=== PATIENT | female | born 1955 | race Caucasian/White ===

== ENCOUNTER 2018-11-16 07:30 | Inpatient (IN) | payer OTHER ==
--- NOTE | 2018-11-09 10:58 | HP ---
H&P (Free Text) History and Physical: [facility] AMY GARCIA M.D. [address] [place] [phone] Date of Visit: November 05, 2018 Patient Name: Christin Rose : 1955 Gender: female Age: 63 years Primary Care Physician: Marcus Boo MD CC: History and physical prior to undergoing a right total knee arthroplasty, 11/16/2018. HPI: The patient is a very pleasant 63-year-old female with bilateral knee pain due to end-stage osteoarthritis with approximately 8/10 knee pain in her right knee, which has been keeping her from doing her normal activities. She has had improvement with injections in the past, however, feels that these are not working as well and has elected to undergo a right total knee arthroplasty by Dr. Amy Garcia on 11/16/2018. PAST MEDICAL HISTORY: 1. Osteoarthritis. 2. History of alcohol abuse. 3. History of anxiety. 4. History of depression. 5. History of breast cancer, status post lumpectomy and radiation in 2004; currently in remission. 6. Ischemic colitis in early . 7. History of psychiatric admission. PAST SURGICAL HISTORY: 1. Breast lumpectomy with radiation in 2004. 2. Varicose vein surgery. CURRENT MEDICATIONS: 1. Venlafaxine HCL 450 mg. 2. Lamotrigine 150 mg 1 tablet p.o. daily. 3. Mometasone 50 mcg spray each nostril daily. 4. Vitamin D 400 international units 1 tablet by mouth daily. 5. Marielena 180 mg 1 tablet by mouth daily. ALLERGIES: No known drug allergies. FAMILY HISTORY: Mother with diabetes, hypertension, and cancer. SOCIAL HISTORY: The patient is retired, lives alone. No tobacco or alcohol use. Normally very active. Right-hand dominant. ROS: The patient denies any lightheadedness, dizziness, seizures, headaches, difficulty with swallowing, nausea, vomiting, constipation, diarrhea, chest pain , heart palpitations, shortness of breath, cough, COPD, urinary symptoms such as urgency or frequency, urinary tract infections, blood in her stool or blood in her urine. Denies any other muscle joint aches or pains. The patient was listed to have a history of hepatitis but she denies this. Has had anesthesia in the past without any difficulty. Review of systems is positive for bilateral knee pain. Meds Prior to Visit: Venlafaxine HCL ER 450 mg Lamotrigine 150 mg take one tablet by mouth daily Mometasone Furoate 50 mcg/Act spray two sprays in each nostril every day Vitamin D (Cholecalciferol) 400 Unit 1 by mouth every day Marielena Allergy 180 mg 1 by mouth every day Ibuprofen Allergies: No Known Drug Allergy Problem List: Complex tear of medial mensc, current injury, l knee, subs Localized, primary osteoarthritis Date: 11/05/2018 Was the patient queried about smoking behavior? Yes No Does the patient currently smoke? Smoking: Patient has never smoked. Vitals: Ht: 62.5" Wt: 181lb Pulse: 84 BP: 130/80 BMI: 32.6 EXAM: GENERAL: Well appearing, in no acute distress. Alert and oriented. Appears younger than stated age. Appropriate mood and affect. Appropriate hygiene. HEENT: Normocephalic, atraumatic. Trachea midline. CARDIAC: Regular rate and rhythm. No murmurs, gallops or rubs. LUNGS: Clear to auscultation bilaterally. No crackles, rhonchi or wheezes. ABDOMEN: Soft, nontender, nondistended. No CVA tenderness bilaterally. MUSCULOSKELETAL: Positive dorsiflexion and plantar flexion equal bilaterally. Negative Homans sign bilaterally. Right knee with medial joint line tenderness and tenderness over the medial femoral condyle. No instability with valgus or varus stresses. Neurovascularly intact to light touch distal to both knees bilaterally. Mild joint effusion noted on the right knee. Range of motion 0- 130 degrees without difficulty. ASSESSMENT: End-stage osteoarthritis, right knee. PLAN: 1. The patient was seen by Dr. Boo who had cleared the patient pending an echocardiogram, which was done on 11/04/2018, which does show some diastolic dysfunction. We will talk with Dr. Boo's office with regard to clearance. She had blood work done, which was within normal limits. She will be seen by a PAT this afternoon for anesthesia clearance. 2. The patient is living alone but she does have a friend who will be staying with her postoperatively. 3. We discussed postoperative DVT prophylaxis, which includes either Eliquis or Coumadin. The patient was in agreement with this. She had no other questions or concerns.
[~2018-11-16 07:30] MED LIST: Buffered Lidocaine 1% SYRIN* 1 ML/SYRINGE INTRADERM ONE; Bupivacaine 0.5% PF 10 ML VIAL INJ ONE; Lactated Ringers 1000 ML Bag* 1,000 ML IV SCH; Tranexamic Acid 1,000 MG in NS 0.9% 50 ML* (outpatient use) IV SCH
--- OUTSIDE RECORDS SUMMARY | 2018-11-16 12:23 | XMS REPORT | Continuity of Care Document ---
:1955 External Reference #:[id number] Author Name Sabiha Barroso Care Team Providers Name Role Phone Marcus Boo MD Primary Care Physician Unavailable Payers Type Date Identification Numbers Payment Provider Subscriber Effective: Policy Number: [id number] [facility] Health Ins Barrington Rose 2009 Ppo/Epo Expires: 2017 Group Number: [id number] [address] PayID: [id number] [place] [address] Effective: 2017 Policy Number: [employer] Medicaid Christin Rose [id number] PayID: [id number] [address] [address] [place] [address] Advance Directives Description No Information Available Problems Date Description Provider Status Onset: 03/20/2017 Localized, primary osteoarthritis Lizbet Cyr MD Active Onset: 03/20/2017 Complex tear of medial meniscus, current Lizbet Cyr MD Active injury, left knee, subsequent encounter Family History Date Family Member(s) Problem(s) Comments General Diabetes General Hypertension General Cancer Social History Type Date Description Comments Sex Unknown Lives With Alone Occupation Retired ETOH Use Denies alcohol use Tobacco Use Start: Unknown Patient has never smoked Smoking Status Reviewed: 11/05/18 Patient has never smoked Exercise Type/Frequency Exercises sporadically Allergies, Adverse Reactions, Alerts Description No Known Drug Allergies Medications Medication Date Status Form Strength Qnty SIG Indications Ordering Provider Venlafaxine HCL ER Active Caps ER 450mg Julio, /0000 24HR Naya Baig MD Lamotrigine Active Tablets 150mg Take One Unknown /0000 Tablet By Mouth Daily Mometasone Furoate Active Suspension 50mcg/Act [place] Unknown /0000 Two Sprays In Each Nostril Every Day Vitamin D Active Capsules 400Unit 1 by Unknown (Cholecalciferol) /0000 mouth every day Marielena Allergy Active Tablets 180mg 1 by Unknown /0000 mouth every day Ibuprofen Active Unknown /0000 Methylprednisolone 00 Hx TBPK 4mg Griffin, / Allan, - [employer] [facility] 02/21 Fish Oil Hx Capsules 435mg 2 by Unknown / mouth - every Medications Administered in Office Medication Date Status Form Strength Qnty SIG Indications Ordering Provider Depomedrol Administered Injection Amy 40MG Kaleb Garcia M.D. Depomedrol Administered Injection Amy 40MG Kaleb Garcia M.D. Depomedrol Administered Injection Amy 40MG Kaleb Garcia M.D. Depomedrol Administered Injection Amy 40MG Kaleb Garcia M.D. Depomedrol Administered Injection Amy 40MG Kaleb Garcia M.D. Depomedrol Administered Injection Amy 40MG Kaleb Garcia M.D. Immunizations Description No Information Available Vital Signs Date Vital Result Comment 11/05/2018 9:44am Height 62.5 inches 5'2.50" Weight 181.00 lb Heart Rate 84 /min BP Systolic 130 mmHg BP Diastolic 80 mmHg BMI (Body Mass Index) 32.6 kg/m2 08/16/2018 2:37pm Height 62.5 inches 5'2.50" Weight 180.00 lb BP Systolic 118 mmHg BP Diastolic 80 mmHg Body Temperature 97.7 F BMI (Body Mass Index) 32.4 kg/m2 05/24/2018 3:04pm Height 63.5 inches 5'3.50" Weight 183.00 lb BP Systolic 111 mmHg BP Diastolic 72 mmHg Respiratory Rate 15 /min Pain Level 6 BMI (Body Mass Index) 31.9 kg/m2 03/22/2018 3:12pm Height 63.5 inches 5'3.50" Weight 185.00 lb BP Systolic Sitting 148 mmHg BP Diastolic Sitting 98 mmHg Respiratory Rate 16 /min Body Temperature 98.4 F Pain Level 1 BMI (Body Mass Index) 32.3 kg/m2 02/22/2018 3:20pm Height 63.5 inches 5'3.50" Weight 185.00 lb Heart Rate 96 /min BP Systolic 126 mmHg BP Diastolic 86 mmHg BMI (Body Mass Index) 32.3 kg/m2 03/20/2017 10:43am Height 64 inches 5'4" Weight 184.00 lb BP Systolic 131 mmHg BP Diastolic 82 mmHg Respiratory Rate 15 /min Pain Level 5 BMI (Body Mass Index) 31.6 kg/m2 Results Description No Information Available Procedures Date Code Description Status 11/04/2018 05685 ECHO Transthoracic, Real-Time 2D With Doppler And Color Completed Flow 08/16/2018 Inject/Drain Joint/Bursa Major W/O US Completed 05/24/2018 Inject/Drain Joint/Bursa Major W/O US Completed 02/22/2018 Inject/Drain Joint/Bursa Major W/O US Completed Encounters Type Date Location Provider Dx Diagnosis Office Visit 08/16/2018 Orthopedic Amy Garcia, M25.561 Pain in right 2:30p Services Of Brianne Garcia knee M25.461 Effusion, right knee M25.562 Pain in left knee M25.462 Effusion, left knee M17.0 Bilateral primary osteoarthritis of knee Office Visit 03/22/2018 2:45p Orthopedic Services Amy Garcia M25.561 Pain in right Of C.M.A. Michael.D. knee M25.562 Pain in left knee M25.461 Effusion, right knee M25.462 Effusion, left knee M17.0 Bilateral primary osteoarthritis of knee Office Visit 02/22/2018 3:00p Orthopedic Amy M17.0 Bilateral primary Services Of Jose Garcia osteoarthritis of C.M.A. knee M25.561 Pain in right knee M25.562 Pain in left knee M25.461 Effusion, right knee M25.462 Effusion, left knee Office Visit 03/20/2017 Orthopedic Lizbet Cyr, M17.12 Unilateral primary 10:30a Services Of osteoarthritis, left C.M.A. knee S83.242A Oth tear of medial meniscus, current injury, left knee, init S83.232D Complex tear of medial mensc, current injury, l knee, subs Office Visit 04/10/2010 2:45p Neurosurgery Elio Saunders 846.0 Sprains & Strains Services Of Joe Tejeda M.D. Sacroiliac Region Lumbosacral (Joint)(Liga Plan of Treatment Future Appointment(s):12/01/2018 11:30 am - Amy Garcia M.D. at [facility].11/16/2018 3:30 pm - Jaya Clifton PA-C at [facility]A.11/16/2018 3:30 pm - JESUS ALBERTO Agosto at [facility] ..A.11/16/2018 3:30 pm - Amy Garcia M.D. at [facility].11/05/2018 - Amy Garcia M.D.M17.12 Unilateral primary osteoarthritis, left kneeFollow up:Follow up: 2 weeks post-op
[2018-11-16] MEDS ORDERED: ceFAZolin 2 GM PREMIX in ORs 2 GM/50 ML BAG IVPB ONE (12:41)
[2018-11-16] MEDS ORDERED: Lidocaine 2% PF * 5 ML VIAL ONE ×2 (12:43→15:28)
[2018-11-16] MEDS ORDERED: Propofol* 10 MG/ML 20 ML BTL ONE ×2 (12:43→12:44)
[2018-11-16] MEDS ORDERED: KETAMINE HCL* 50 MG/ML 10 ML VIAL ONE (12:44)
[2018-11-16] MEDS ORDERED: EPINEPHrine SYR 0.1MG/ML* SYRINGE ONE (13:26)
[2018-11-16] MEDS ORDERED: ROPIVACAINE 5 MG/ML 30 ML BTL (0.5%) ONE ×3 (14:31→14:44)
[2018-11-16] MEDS ORDERED: Midazolam* 1 MG/ML 2 ML VIAL (2 MG) ONE (14:45)
[2018-11-16] MEDS ORDERED: Dexamethasone IV* 4 MG/ML 1 ML (4 MG) ONE (14:51)
[2018-11-16] MEDS ORDERED: Ondansetron INJ* 2 MG/ML VIAL IV PRN ×2 (17:25→17:52)
[2018-11-16] MEDS ORDERED: Acetaminophen IV 1GM/100ML * 1,000 MG/100 ML VIAL IVPB ONE (17:25)
[2018-11-16] MEDS ORDERED: Naloxone* 0.4 MG/ML 1 ML VIAL IV PRN (17:25)
[2018-11-16] MEDS ORDERED: oxyCODONE TAB* 5 MG TAB PO PRN (17:25)
[2018-11-16] MEDS ORDERED: HYDROmorphone INJ1* 1 MG/ML SYRINGE IV PRN (17:25)
[2018-11-16] MEDS ORDERED: Ketorolac INJ* 30 MG/ML 1 ML VIAL IV PRN (17:25)
[2018-11-16] MEDS ORDERED: oxyCODONE/Acetamin 5/325 MG* TAB PO PRN (17:52)
[2018-11-16] MEDS ORDERED: diPHENhydraMINE IV* 50 MG/ML 1 ml VIAL (BENADRYL) IV PRN (17:52)
[2018-11-16] MEDS ORDERED: Ondansetron TAB* 4 MG PO PRN (17:52)
[2018-11-16] MEDS ORDERED: Bisacodyl SUPP* 10 MG SUPP PR PRN (17:52)
[2018-11-16] MEDS ORDERED: Magnesium Hydroxide LIQ* 30 ML UDC PO PRN (17:52)
[2018-11-16] MEDS ORDERED: Polyethylene Glycol 3350* 17 GM PACKET PO PRN (17:52)
[2018-11-16] MEDS ORDERED: Acetaminophen IV 1GM/100ML * 100 ML ONE (20:55)
[2018-11-16] MEDS ORDERED: Ketorolac INJ* 30 MG/ML 1 ML VIAL ONE (20:55)
[2018-11-16] MEDS ORDERED: Warfarin TAB(*) 6 MG PO ONE (22:00)
[2018-11-16] MEDS: Magnesium Hydroxide LIQ* 30 ML UDC PO SCH (22:51)
[2018-11-16] MEDS: traMADol TAB* 50 MG PO PRN (22:52)
[2018-11-16] MEDS: Docusate CAP* 100 MG PO SCH (22:52)
[2018-11-16] MEDS: lamoTRIgine TAB(*) 100 MG PO SCH (22:52)
[2018-11-16] MEDS: Venlafaxine EXT RELEASE CAP* 75 MG PO SCH (22:53)
[2018-11-16] MEDS: Lactated Ringers 1000 ML Bag* 1,000 ML IV SCH (23:20)
[2018-11-16] MEDS: ceFAZolin 1 GM ADVAN(*) 1 GM in NS 0.9% 50 ML* 50 ML IVPB SCH (23:20)
[2018-11-16] MEDS: Morphine INJ* 2 MG/ML 1 ML SYRINGE (TWO MG - NEW SYRINGE VERSION) IV PRN (23:29)
[2018-11-17] MEDS: Cyclobenzaprine TAB* 10 MG PO PRN ×3 (00:17→19:26)
[2018-11-17] MEDS: oxyCODONE TAB* 5 MG TAB PO PRN ×6 (00:17→23:37)
[2018-11-17] MEDS: Morphine INJ* 2 MG/ML 1 ML SYRINGE (TWO MG - NEW SYRINGE VERSION) IV PRN ×3 (01:31→06:33)
[2018-11-17] MEDS: oxyCODONE/Acetamin 5/325 MG* TAB PO PRN ×5 (03:23→21:36)
[2018-11-17] MEDS: traMADol TAB* 50 MG PO PRN ×3 (05:06→21:36)
[2018-11-17] MEDS: Acetaminophen TAB* 325 MG PO SCH ×3 (06:31→21:40)
[2018-11-17 06:45] LABS: Hematocrit 33 % (35-47); Hemoglobin 11.3 g/dl (12.0-16.0); Mean Platelet Volume 9.4 fL (7.4-10.4); Platelet Count 206 10^3/ul (150-450)
[2018-11-17 06:49] LABS: INR 0.98 (0.77-1.02)
[2018-11-17 06:54] LABS: Calcium 8.8 mg/dL (8.6-10.3); Potassium 3.9 mmol/L (3.5-5.0)
[2018-11-17 06:59] LABS: BUN/Creatinine Ratio 23.7 (8-20); EGFR African American 93.3 (>60); EGFR Non-African American 77.1 (>60)
[2018-11-17] MEDS: ceFAZolin 1 GM ADVAN(*) 1 GM in NS 0.9% 50 ML* 50 ML IVPB SCH ×2 (08:28→16:36)
[2018-11-17] MEDS: Venlafaxine EXT RELEASE CAP* 75 MG PO SCH ×2 (08:33→21:36)
[2018-11-17] MEDS: Magnesium Hydroxide LIQ* 30 ML UDC PO SCH ×2 (08:33→21:37)
[2018-11-17] MEDS: Docusate CAP* 100 MG PO SCH ×2 (08:33→21:37)
[2018-11-17] MEDS: lamoTRIgine TAB(*) 100 MG PO SCH ×2 (08:33→21:36)
--- NOTE | 2018-11-17 08:57 | PN ---
Subjective - Subjective Reason for Note: Progress Note History: Internal medicine/primary care note: 1 day post right TKA. She is doing well and has no medical complications. Her pain control is good and she has no focal symptoms Active Problems: Active Problems Status post total knee replacement, right (Acute) Z96.651 Current Medications: Current Medications Acetaminophen (Tylenol Tab*) 975 mg PO Q8HR [facility] Last Admin: 11/17/18 06:31 Dose: Not Given Bisacodyl (Dulcolax Supp*) 10 mg [place] DAILY PRN PRN Reason: constipation Cyclobenzaprine HCl (Flexeril Tab*) 10 mg PO TID PRN PRN Reason: SPASMS Last Admin: 11/17/18 00:17 Dose: 10 mg Diphenhydramine HCl (Benadryl Iv*) 12.5 mg IV Q6H PRN PRN Reason: PRURITIS Docusate Sodium (Colace Cap*) 100 mg PO BID [facility] Last Admin: 11/17/18 08:33 Dose: 100 mg Enoxaparin Sodium (Lovenox(*)) 40 mg SUBCUT Q24H [facility] Lactated Ringer's (Lactated Ringers 1000 Ml Bag*) 1,000 mls @ 125 mls/hr IV PER RATE [facility] Last Admin: 11/16/18 12:58 Dose: 125 mls/hr Cefazolin Sodium 1 gm/ Sodium (Chloride) 50 mls @ 200 mls/hr IVPB Q8H [facility] Stop: 11/17/18 16:14 Last Admin: 11/17/18 08:28 Dose: 200 mls/hr Lactated Ringer's (Lactated Ringers 1000 Ml Bag*) 1,000 mls @ 100 mls/hr IV PER RATE [facility] Last Admin: 11/16/18 23:20 Dose: 100 mls/hr Lactulose (Lactulose*) 30 ml PO Q6H PRN PRN Reason: constipation Lamotrigine (Lamictal Tab(*)) 100 mg PO BID [facility] Last Admin: 11/17/18 08:33 Dose: 100 mg Magnesium Hydroxide (Milk Of Magnesia Liq*) 30 ml PO BID [facility] Last Admin: 11/17/18 08:33 Dose: 30 ml Magnesium Hydroxide (Milk Of Magnesia Liq*) 30 ml PO Q6H PRN PRN Reason: constipation Morphine Sulfate (Morphine Inj ((Syringe))*) 2 mg IV Q2H PRN PRN Reason: PAIN Last Admin: 11/17/18 06:33 Dose: 2 mg Ondansetron HCl (Zofran Inj*) 4 mg IV Q6H PRN PRN Reason: nausea Ondansetron HCl (Zofran Tab*) 4 mg PO Q6H PRN PRN Reason: NAUSEA Oxycodone HCl (Roxycodone Tab*) 10 mg PO Q4H PRN PRN Reason: SEVERE PAIN Last Admin: 11/17/18 06:32 Dose: 10 mg Oxycodone/Acetaminophen (Percocet 5/325 Tab*) 1 tab PO Q4H PRN PRN Reason: PAIN Oxycodone/Acetaminophen (Percocet 5/325 Tab*) 2 tab PO Q4H PRN PRN Reason: PAIN Last Admin: 11/17/18 08:32 Dose: 2 tab Polyethylene Glycol/Electrolytes (Miralax*) 17 gm PO DAILY PRN PRN Reason: Constipation Tramadol HCl (Ultram*) 50 mg PO Q6H PRN PRN Reason: PAIN Last Admin: 11/17/18 05:06 Dose: 50 mg Venlafaxine HCl (Effexor Xr Cap*) 300 mg PO BEDTIME HARIS; Protocol Last Admin: 11/16/18 22:53 Dose: 300 mg Venlafaxine HCl (Effexor Xr Cap*) 150 mg PO QAM [facility] Last Admin: 11/17/18 08:33 Dose: 150 mg - Review of Systems Constitutional Symptoms: No: Fever Pulmonary: Negative: Cough, Sputum, Shortness of Breath Cardiology: Negative: Chest Pain, Palpitations, Swelling of Ankles Gastroenterology: Positive: Anorexia Negative: Abdominal Pain, Nausea, Vomiting Genital - Urinary: Positive: Other - Wilkerson recently removed Home Medications: Home Medications Medication Instructions Recorded Confirmed Type Cholecalciferol TAB* [Vitamin D 2,000 unit PO QAM 03/24/17 11/16/18 History TAB*] Fexofenadine (NF) [Marielena 180 180 mg PO QAM 03/24/17 11/16/18 History (NF)] Venlafaxine EXT RELEASE CAP* 150 mg PO QAM 03/24/17 11/16/18 History [Effexor Xr CAP*] lamoTRIgine TAB(*) [LaMICtal 100 mg PO BID 03/24/17 11/16/18 History TAB(*)] Ibuprofen TAB* [Advil TAB*] 200 - 600 mg PO TID PRN 11/05/18 11/16/18 History Triamcinolone NASAL SPRAY* 1 spray .SEE ORDER DAILY PRN 11/05/18 11/16/18 History [Nasacort AQ Nasal [place]*] Venlafaxine CAP (NF) [Effexor CAP 300 mg PO BEDTIME 11/05/18 11/16/18 History (NF)] Allergies: Allergies Allergy/AdvReac Type Severity Reaction Status Date / Time No Known Allergies Allergy Verified 11/16/18 12:53 Objective - Vital Signs Vital Signs: Vital Signs 11/16/18 11/16/18 11/16/18 12:52 17:47 17:50 Temperature 96.3 F 97.5 F Pulse Rate 91 Respiratory 16 16 16 Rate Blood Pressure 155/71 (mmHg) O2 Sat by Pulse 94 Oximetry 11/16/18 11/16/18 11/16/18 17:52 17:53 17:55 Temperature Pulse Rate 76 77 74 Respiratory 16 Rate Blood Pressure 100/67 112/74 (mmHg) O2 Sat by Pulse 97 98 98 Oximetry 11/16/18 11/16/18 11/16/18 18:00 18:01 18:05 Temperature Pulse Rate 74 73 71 Respiratory 16 Rate Blood Pressure 110/75 118/63 (mmHg) O2 Sat by Pulse 99 99 99 Oximetry 11/16/18 11/16/18 11/16/18 18:15 18:30 18:45 Temperature Pulse Rate 68 68 66 Respiratory 16 14 16 Rate Blood Pressure 121/75 122/72 130/70 (mmHg) O2 Sat by Pulse 94 94 95 Oximetry 11/16/18 11/16/18 11/16/18 19:00 19:15 19:16 Temperature Pulse Rate 66 70 Respiratory 16 18 Rate Blood Pressure 127/66 136/91 (mmHg) O2 Sat by Pulse 94 96 Oximetry 11/16/18 11/16/18 11/16/18 19:30 19:31 19:45 Temperature Pulse Rate 73 74 Respiratory 16 16 Rate Blood Pressure 142/77 122/76 (mmHg) O2 Sat by Pulse 97 96 Oximetry 11/16/18 11/16/18 11/16/18 20:00 20:15 20:30 Temperature Pulse Rate 75 77 79 Respiratory 18 16 16 Rate Blood Pressure 125/74 132/60 114/82 (mmHg) O2 Sat by Pulse 96 95 95 Oximetry 11/16/18 11/16/18 11/16/18 20:45 21:00 21:04 Temperature Pulse Rate 78 79 Respiratory 18 16 Rate Blood Pressure 127/65 130/70 (mmHg) O2 Sat by Pulse 94 96 Oximetry 11/16/18 11/16/18 11/16/18 21:15 21:32 21:38 Temperature 98.6 F 98.6 F Pulse Rate 77 77 Respiratory 16 16 16 Rate Blood Pressure 112/58 112/58 (mmHg) O2 Sat by Pulse 95 95 Oximetry 11/16/18 11/16/18 11/16/18 22:24 22:27 22:52 Temperature 98.4 F Pulse Rate 82 81 Respiratory 18 16 Rate Blood Pressure 118/51 (mmHg) O2 Sat by Pulse 97 96 Oximetry 11/16/18 11/16/18 11/17/18 23:29 23:35 00:00 Temperature 97.5 F Pulse Rate 80 Respiratory 16 16 Rate Blood Pressure 135/62 (mmHg) O2 Sat by Pulse 95 96 Oximetry 11/17/18 11/17/18 11/17/18 00:17 00:30 01:13 Temperature 98.5 F Pulse Rate 80 Respiratory 20 16 18 Rate Blood Pressure 137/63 (mmHg) O2 Sat by Pulse 96 Oximetry 11/17/18 11/17/18 11/17/18 01:31 02:30 02:31 Temperature Pulse Rate Respiratory 18 16 16 Rate Blood Pressure (mmHg) O2 Sat by Pulse Oximetry 11/17/18 11/17/18 11/17/18 03:23 03:26 03:34 Temperature 98.3 F 98.6 F Pulse Rate 80 80 Respiratory 16 18 Rate Blood Pressure 115/52 110/58 (mmHg) O2 Sat by Pulse 95 97 Oximetry 11/17/18 11/17/18 11/17/18 04:28 04:29 05:06 Temperature Pulse Rate Respiratory 16 16 Rate Blood Pressure (mmHg) O2 Sat by Pulse 95 Oximetry 11/17/18 11/17/18 11/17/18 06:32 06:33 06:37 Temperature Pulse Rate Respiratory 16 16 16 Rate Blood Pressure (mmHg) O2 Sat by Pulse Oximetry 11/17/18 11/17/18 11/17/18 06:38 07:15 08:32 Temperature 98.3 F Pulse Rate 75 Respiratory 16 16 18 Rate Blood Pressure 103/51 (mmHg) O2 Sat by Pulse 94 Oximetry - Intake and Output Intake and Output: Intake & Output 11/14/18 11/15/18 11/16/18 11/17/18 11:59 11:59 11:59 11:59 Intake Total 1755 Output Total 700 Balance 1055 Weight 183 lb Intake: IV Fluids 1055 ABX - CEFAZOLIN 55 LR 1000 Oral 700 Output: Urine 350 Wilkerson 350 Other: Estimated Blood Loss MINIMAL Comment ADLs: Meal Record Start: 11/16/18 21: 32 Freq: Status: Active Protocol: Created 11/16/18 21:32 [id number] (Rec: 11/16/18 21:32 [id number]) Intake and Output Start: 11/16/18 17: 52 Freq: 06,14,2200 Status: Active Protocol: Created 11/16/18 17:57 [id number] (Rec: 11/16/18 17:57 [id number]) Document 11/16/18 23:38 [id number] (Rec: 11/16/18 23:38 [id number]) Document 11/17/18 05:00 [id number] (Rec: 11/17/18 07:14 [id number] [id number]) Document 11/17/18 05:32 [id number] (Rec: 11/17/18 05:35 [id number] [id number]) Intake and Output Start: 11/16/18 21: 32 Freq: DAILY@0600,1400,2200 Status: Active Protocol: Created 11/16/18 21:32 [id number] (Rec: 11/16/18 21:32 [id number] [id number]) Document 11/16/18 23:38 [id number] (Rec: 11/16/18 23:38 [id number] [id number]) Document 11/17/18 05:32 [id number] (Rec: 11/17/18 05:35 [id number] [id number]) Document 11/17/18 06:45 [id number] (Rec: 11/17/18 07:14 [id number] [id number]) - Physical Exam General Physical Exam Comment: Alert, oriented, conversational - in no acute distress. Hemodynamically stable General: No Cyanosis, No Anemia, No Jaundice, No Clubbing Lungs and Chest: Yes: Chest Expansion Full, Chest Expansion Symetrica, Percussion Note Resonant, Vessicular Breath Sounds. No: Crackles, Wheezes Heart Rate and Rhythm: Regular JVP: Not Elevated Additional Cardiovascular: Yes: Normal Heart Sounds. No: Heart Murmur, Pedal Edema Abdominal Exam: Yes: Soft, Bowel Sounds Present. No: Distention, Abdominal Mass , Abdominal Tenderness Results - Results Lab Results: Laboratory Results - last 24 hr 11/17/18 11/17/18 11/17/18 06:09 06:09 06:09 Hgb 11.3 L Hct 33 L Plt Count 206 MPV 9.4 INR (Anticoag Therapy) 0.98 Sodium 136 Potassium 3.9 Chloride 105 Carbon Dioxide 24 Anion Gap 7 BUN 18 Creatinine 0.76 Est GFR ( Amer) 93.3 Est GFR (Non-Af Amer) 77.1 BUN/Creatinine Ratio 23.7 H Glucose 125 H Calcium 8.8 Assessment - Problem List Assessment: Patient Problems Status post total knee replacement, right (Acute) Alcohol use (Acute 05/01/15) Anxiety (Acute 05/01/15) Depression (Acute 05/01/15) Substance induced mood disorder (Acute 05/01/15) Plan: Status post total knee replacement, right (Acute) She tolerated the surgery well Alcohol use (Acute 05/01/15) Not an active issue Anxiety (Acute 05/01/15) She is calm Depression (Acute 05/01/15) not a problem today Substance induced mood disorder (Acute 05/01/15) Her main concern is that she lives alone. She is going to be mobilized today. If there is a problem with this, she is a good candidate for PMRU
[2018-11-17] MEDS: Lactated Ringers 1000 ML Bag* 1,000 ML IV SCH ×2 (09:45→20:27)
--- NOTE | 2018-11-17 09:51 | PN ---
Progress Note - Progress Note Date of Service: 11/17/18 SOAP: Subjective: [] Pt seen and examined at bedside. She feels well without CP, SOB, dizziness, nausea. Well controlled knee pain. Concerned about help at home, desires rehab as she lives alone. She does have friends who will help though no 04/05 care. Objective: [] General: NAD RLE: Right knee dressing CDI without surrounding erythema, cryo cuff in use, thigh is soft, DF/PF intact, sensation intact to light touch distally, DP2+ capillary refill less than two seconds distally Calves supple and nontender without erythema, edema or palpable cords Assessment: []POD [address] Garcia 11/16 Plan: []WBAT PT/OT Lovenox bridge to coumadin. Coumadin 8 mg today Desires rehab at [place], CM made aware Vital Signs Temp 98.3 F 11/17/18 07:15 Pulse 75 11/17/18 07:15 Resp 18 11/17/18 09:16 BP 103/51 11/17/18 07:15 Pulse Ox 94 11/17/18 07:15 Intake & Output 11/16/18 11/17/18 11/17/18 18:59 06:59 18:59 Intake Total 1000 755 120 Output Total 100 600 Balance 900 155 120 Weight 183 lb Intake: IV Fluids 1000 55 ABX - CEFAZOLIN 55 LR 1000 Oral 700 120 Output: Urine 350 Wilkerson 100 250 Other: Estimated Blood Loss MINIMAL Comment Laboratory Last Values Hgb 11.3 g/dl (12.0-16.0) L 11/17/18 06:09 Hct 33 % (35-47) L 11/17/18 06:09 Plt Count 206 10^3/ul (150-450) 11/17/18 06:09 MPV 9.4 fL (7.4-10.4) 11/17/18 06:09 INR (Anticoag Therapy) 0.98 (0.77-1.02) 11/17/18 06:09 Sodium 136 mmol/L (135-145) 11/17/18 06:09 Potassium 3.9 mmol/L (3.5-5.0) 11/17/18 06:09 Chloride 105 mmol/L (101-111) 11/17/18 06:09 Carbon Dioxide 24 mmol/L (22-32) 11/17/18 06:09 Anion Gap 7 mmol/L (2-11) 11/17/18 06:09 BUN 18 mg/dL (6-24) 11/17/18 06:09 Creatinine 0.76 mg/dL (0.51-0.95) 11/17/18 06:09 Est GFR ( Amer) 93.3 (>60) 11/17/18 06:09 Est GFR (Non-Af Amer) 77.1 (>60) 11/17/18 06:09 BUN/Creatinine Ratio 23.7 (8-20) H 11/17/18 06:09 Glucose 125 mg/dL (70-100) H 11/17/18 06:09 Calcium 8.8 mg/dL (8.6-10.3) 11/17/18 06:09
--- NOTE | 2018-11-17 10:10 | OP ---
OPERATIVE NOTE: DATE OF OPERATION: 11/16/18 DATE OF : 57 ATTENDING SURGEON: Amy Garcia MD AUTOCAD TECHNICIAN: JESUS ALBERTO Vincent ANESTHESIOLOGIST: Dr. Alvarenga. ANESTHESIA: Spinal. PRE-OP DIAGNOSIS: Severe end-stage degenerative osteoarthritis of the right knee joint. POST-OP DIAGNOSIS: Severe end-stage degenerative osteoarthritis of the right knee joint. OPERATIVE PROCEDURE: Right total knee arthroplasty. TOURNIQUET TIME: 45 minutes. ESTIMATED BLOOD LOSS: 200 cc. COMPLICATIONS: None. SPECIMEN: Bone and cartilage from the right knee joint sent to Pathology. HARDWARE: This is cemented [employer] total knee arthroplasty hardware. Two packages of Simpl ex bone cement. For the femur, a right size 4 narrow Oxinium posterior stabilized Legion femoral com ponent. For the tibia, a size 3 right Kathryn II tibial baseplate. For the insert, an 11 mm posteri or stabilized articular insert, size 3-4, and for the patella, a 29 mm 3-peg all poly patella with 7. 5 thickness. BRIEF HISTORY/INDICATION: Ms. Rose is a 63-year-old female with years of increasingly severe right knee pain. She failed conservative treatment with antiinflammatories, pain medication, intraarticul ar injection, and physical therapy. Due to continued pain and decreased quality of life, she elected to undergo right total knee arthroplasty. Radiographs showed [id number] arthritis. Informed conse nt was obtained from the patient. She understood the risks of surgery included, but were not limited to, bleeding, infection, damage to nearby structures, continued pain, need for further surgery, intr aoperative fracture, nerve palsy, hardware failure or loosening, knee stiffness, loss of motion, stro ke, heart attack, blood clot, and . She wished to proceed. INTRAOPERATIVE FINDINGS: Intraoperatively, the patient was noted to have severe end-stage arthritis with complete loss of cartilage in the medial and patellofemoral compartments. She had extensive ost eophyte formation. DESCRIPTION OF PROCEDURE: Ms. Rose was identified in the preanesthesia unit. Her right lower extre mity was marked as the correct operative side. Informed consent was signed and placed in the chart. The patient was taken to the operating room and placed under anesthesia. A Wilkerson catheter was place d. A tourniquet was placed on the right thigh. Right lower extremity was prepped and draped in the usual sterile fashion. Preop time-out was made to correctly identify the patient, side, and site. A ppropriate perioperative antibiotics were given within 1 hour of incision. A midline incision was made with a 10 blade and carried down to the extensor mechanism. A new 10 piter de was used to make a standard medial parapatellar arthrotomy. Patella was subluxed laterally. Elec trocautery was used to subperiosteally elevate the soft tissue off the superomedial tibia to the mid sagittal plane. The knee was flexed up. The anterior horn of the lateral meniscus and ACL were charo ply released. A drill was used to enter the distal femur. Intramedullary distal femoral cutting guid e was pinned on the distal femur. Oscillating saw was used to make the distal femoral cut. Next, the external rotation guide was pinned on the distal femur. Distal femur was sized to a size 4. Size 4 multi-cutting jig was pinned on the distal femur. Oscillating saw was used to make the appropriate 4 chamfer cuts. The PCL was completely released. Tibia was subluxed anteriorly. Extramedullary tibial cutting guide was pinned on the proximal tibia. Oscillating saw was used to make the proximal tibial cut perpendi cular to the mechanical axis of the tibia. The bone was carefully removed. The knee was brought out into full extension. Medial and lateral ligaments were well balanced. Flexion and extension gaps wer e well balanced. The knee was flexed up. A lamina spice blender was placed both medially and laterally. Any remaining meniscus was carefully removed using electrocautery. Curved osteotome was used to julianne ve any posterior osteophytes. Tibial tray and drop rey were placed and once again confirmed a satisf actory tibial cut. A 4 narrow right femoral trial was impacted onto the distal femur and had excellent fit and stability . The box for the posterior stabilized implant was prepared using a reamer and box cut osteotome. A size 3 tibial tray trial with an 11 mm insert trial was placed and the knee was taken through a rang e of motion. The knee had full extension to 130 degrees of flexion with satisfactory patellofemoral tracking. The patella was everted. 7 mm of patellar bone and cartilage were carefully removed using an oscillating saw. Any osteophytes were removed. The patella was sized to a size 29. Three peg ho les were drilled through the size 29 guide. A 29 trial patella with 7.5 thickness was placed and the knee was taken through a range of motion. There was satisfactory patellofemoral tracking. All trials were carefully removed. The tibia was subluxed anteriorly and sized to a size 3. Proxima l tibia was prepared using a size 3 keel punch. All bony cut surfaces were copiously irrigated with sterile saline and dried. Final implants were cemented into place starting with the tibia, followed by the femur, and lastly the patella. An 11 mm insert trial was placed while the knee was brought ou t into full extension. Tourniquet was turned down at 45 minutes. Electrocautery was used to obtain meticulous hemostasis. The knee was copiously irrigated with sterile saline. Once the cement had fu lly cured, the insert trial was removed. Any excess cement was removed from around the capsule and h ardware. Final insert chosen was an 11 mm posterior stabilized articular insert size 3-4. This was locked into position on the tibial tray. Stability of the insert was checked and rechecked and noted to be stable. The extensor mechanism was closed using interrupted #1 Vicryl. The rest of the incision was closed i n a layered fashion using 0 and 2-0 Vicryl. Skin was closed using running 3-0 nylon suture. Sterile Xeroform, 4x4s, and Webril were used to cover the incision. Mani wrap and cold pack were placed over this. The patient's anesthesia was reversed without difficulty. She was taken to the PACU in stabl e condition. Intended weightbearing will be weightbearing as tolerated. Intended DVT prophylaxis wi ll be Eliquis. [id number]/[facility] #: [id number]
[2018-11-17] MEDS: Enoxaparin(*) 40 MG/0.4 ML SYR SUBCUT SCH (11:33)
[2018-11-17] MEDS ORDERED: Warfarin TAB(*) 4 MG PO ONE (17:00)
[2018-11-18] MEDS: oxyCODONE/Acetamin 5/325 MG* TAB PO PRN ×3 (01:43→16:50)
[2018-11-18] MEDS: oxyCODONE TAB* 5 MG TAB PO PRN (03:47)
[2018-11-18] MEDS: Cyclobenzaprine TAB* 10 MG PO PRN (03:47)
[2018-11-18] MEDS: Acetaminophen TAB* 325 MG PO SCH ×2 (06:04→14:12)
[2018-11-18 06:22] LABS: Hematocrit 30 % (35-47); Mean Platelet Volume 9.2 fL (7.4-10.4); Platelet Count 173 10^3/ul (150-450)
[2018-11-18 06:39] LABS: INR 1.38 (0.77-1.02)
[2018-11-18] MEDS: Docusate CAP* 100 MG PO SCH (09:20)
[2018-11-18] MEDS: Magnesium Hydroxide LIQ* 30 ML UDC PO SCH (09:21)
[2018-11-18] MEDS: lamoTRIgine TAB(*) 100 MG PO SCH (09:21)
[2018-11-18] MEDS: Venlafaxine EXT RELEASE CAP* 75 MG PO SCH (09:21)
--- NOTE | 2018-11-18 09:48 | PN ---
Progress Note - Progress Note Date of Service: 11/18/18 SOAP: Subjective: []Pt seen and examined at bedside. Feels very well today without R knee pain, CP , SOB, dizziness or nausea. She has not attend PT yet today. Objective: []General: NAD RLE: Right knee dressing changed, incision CDI without surrounding erythema, cryo cuff in use, thigh is soft, DF/PF intact, sensation intact to light touch distally, DP2+ capillary refill less than two seconds distally Calves supple and nontender without erythema, edema or palpable cords Assessment: []POD [address] Garcia 11/16 Plan: []WBAT PT/OT Lovenox bridge to coumadin. Coumadin 8 mg today Encouraged IS, low 90s O2 sats, asymptomatic Desires rehab at [place], had a bed at [facility], awaiting insurance auth Vital Signs Temp 99.0 F 11/18/18 07:29 Pulse 82 11/18/18 07:29 Resp 14 11/18/18 09:19 BP 113/53 11/18/18 07:29 Pulse Ox 90 11/18/18 07:29 Intake & Output 11/17/18 11/18/18 11/18/18 18:59 06:59 18:59 Intake Total 3096 2906 Output Total 225 1330 Balance 2871 1576 Intake: IV Fluids 1096 1806 ABX - CEFAZOLIN 55 LR 1096 1751 IVPB 560 ABX - CEFAZOLIN 60 LR 500 Oral 1440 1100 Output: Urine 225 1330 Laboratory Last Values Hgb 10.0 g/dl (12.0-16.0) L 11/18/18 05:50 Hct 30 % (35-47) L 11/18/18 05:50 Plt Count 173 10^3/ul (150-450) 11/18/18 05:50 MPV 9.2 fL (7.4-10.4) 11/18/18 05:50 INR (Anticoag Therapy) 1.38 (0.77-1.02) H 11/18/18 05:50 Sodium 136 mmol/L (135-145) 11/17/18 06:09 Potassium 3.9 mmol/L (3.5-5.0) 11/17/18 06:09 Chloride 105 mmol/L (101-111) 11/17/18 06:09 Carbon Dioxide 24 mmol/L (22-32) 11/17/18 06:09 Anion Gap 7 mmol/L (2-11) 11/17/18 06:09 BUN 18 mg/dL (6-24) 11/17/18 06:09 Creatinine 0.76 mg/dL (0.51-0.95) 11/17/18 06:09 Est GFR ( Amer) 93.3 (>60) 11/17/18 06:09 Est GFR (Non-Af Amer) 77.1 (>60) 11/17/18 06:09 BUN/Creatinine Ratio 23.7 (8-20) H 11/17/18 06:09 Glucose 125 mg/dL (70-100) H 11/17/18 06:09 Calcium 8.8 mg/dL (8.6-10.3) 11/17/18 06:09
[2018-11-18] MEDS: Enoxaparin(*) 40 MG/0.4 ML SYR SUBCUT SCH (12:49)
[2018-11-18] MEDS: traMADol TAB* 50 MG PO PRN (12:49)
[2018-11-18 14:36] VITALS: BP 128/62
--- NOTE | 2018-11-18 15:14 | DS ---
AMENDED REPORT NOW INCLUDES COSIGNER DESIGNATION DATE OF ADMISSION: 11/16/2018. DATE OF DISCHARGE: 11/18/2018. PROVIDER: Dr. Amy Garcia * (dictated by JESUS ALBERTO Sterling). PREOPERATIVE DIAGNOSIS: Severe end-stage degenerative osteoarthritis of the right knee joint. OPERATIVE PROCEDURE: Right total knee arthroplasty. HISTORY: Ms. Rose is a 63-year-old female with years of increasing severe right knee pain. She failed conservative management and elected to undergo right total knee arthroplasty. HOSPITAL COURSE: The patient was admitted to [facility] on 2018. She underwent a right total knee arthroplasty without complication. Postop day one, she was well-appearing and in no acute distress. Right knee dressing was clean, dry, and intact without any surrounding erythema. Cryocuff in use. Thigh is soft. Dorsiflexion and plantarflexion intact. Sensation intact to light touch distally. DP pulse 2+. Calves supple, nontender, without erythema, edema, or palpable cords. Postop day two, dressing was changed. Incision was clean, dry, and intact. The remainder of the exam is unchanged. Vital signs: Temperature 97.8, pulse rate 90, oxygen saturation on room air 95 percent, blood pressure 98/44. DISCHARGE MEDICATIONS: 1. Effexor XR 150 mg p.o. q.a.m. 2. Fexofenadine 180 mg p.o. q.a.m. 3. Vitamin D 2,000 units p.o. q.a.m. 4. Lamotrigine 100 mg p.o. b.i.d. 5. Venlafaxine 300 mg p.o. at bedtime. 6. Nasacort AQ nasal spray one spray daily prn. 7. Docusate 100 mg p.o. b.i.d. prn constipation. 8. Lovenox 40 mg subcu q.24 hours until INR is therapeutic between 2 and 3, may stop and transition to Coumadin alone for DVT prophylaxis once INR has reached 2. 9. Percocet 5/325 one to two tabs every 4 to 6 hours as needed for pain, max daily dose is 10. 10. Warfarin 2 mg tablets 0 to 5 tabs daily, dose depends on INR. This is for a duration of 30 days. 11. Acetaminophen 975 mg p.o. q.8 hours prn. DISCHARGE PLAN: The patient will be weightbearing as tolerated. She will follow- up with Dr. Garcia in 10 to 14 days. She can actually shower postop day three, do not submerge the wound. The wound should be dressed daily with clean gauze and Mani wrap. Pain control with Percocet 5/325 one to two tabs every 4 to 6 hours as needed for pain, max daily dose of ten. She will be on Lovenox bridged to Coumadin for DVT prophylaxis. Lovenox 40 mg subcu daily until INR is therapeutic between two and three. She will be on Coumadin 2 mg tabs taking between zero and five tabs daily for DVT prophylaxis. INR on November 18 was 1.38. She will take 6 mg on November 18, then she will take 4 mg daily on November 19, November 20, and November 21. Recheck INR on November 22 for repeat dosing instructions. INR's need to be sent to [facility] for further dosing instructions. DISPOSITION: She is discharged to [facility]. No changes to home medications. JESUS ALBERTO RICHARDS [id number]/[facility] #: [id number] SAM
[2018-11-18] MEDS ORDERED: Warfarin TAB(*) 6 MG PO ONE (17:00)
[2018-11-18] MEDS ORDERED: Warfarin TAB(*) 4 MG PO ONE (17:00)
== END 2018-11-18 16:55 | DRG 302 ==
LOC: AA 12:19 → SSU 21:14
PROVIDERS: ADMIT Orthopaedic Surgery Adult Reconstructive Orthopaedic Surgery; ATTEND Orthopaedic Surgery Adult Reconstructive Orthopaedic Surgery
PROC: 0SRC069 Replacement of Right Knee Joint with Oxidized Zirconium on Polyethylene Synthetic Substitute, Cemented, Open Approach (ICD-10-PCS; principal; 2018-11-16 15:00)
DX: M17.0 Bilateral primary osteoarthritis of knee (principal); F41.9 Anxiety disorder, unspecified; M25.461 Effusion, right knee; E78.00 Pure hypercholesterolemia, unspecified; F31.9 Bipolar disorder, unspecified; M85.80 Other specified disorders of bone density and structure, unspecified site; M81.0 Age-related osteoporosis without current pathological fracture; E66.9 Obesity, unspecified; R63.0 Anorexia; J30.1 Allergic rhinitis due to pollen; M25.761 Osteophyte, right knee; Z79.01 Long term (current) use of anticoagulants; Z85.3 Personal history of malignant neoplasm of breast; Z92.3 Personal history of irradiation; Z68.31 Body mass index [BMI] 31.0-31.9, adult; Z91.048 Other nonmedicinal substance allergy status; Z82.49 Family history of ischemic heart disease and other diseases of the circulatory system; Z83.3 Family history of diabetes mellitus; Z85.828 Personal history of other malignant neoplasm of skin; Z80.3 Family history of malignant neoplasm of breast; Z81.8 Family history of other mental and behavioral disorders; Z91.410 Personal history of adult physical and sexual abuse
CPT/HCPCS: 36415; 80048; 85014; 85018; 85049; 85610; 88305; 88311; A9270-GY; C1776; J0171; J0690; J1100; J1650; J1885; J2250; J2270; J2704; J2795